=== PATIENT | female | born 1950 | race American Indian/Alaskan Native ===

== ENCOUNTER 2017-03-31 08:18 | Outpatient (CLI) | payer MEDICARE, OTHER ==
--- NOTE | 2017-03-31 13:00 | PET Report ---
PET SB TO MT SUBSEQUENT: HISTORY: Breast cancer. TECHNIQUE: 11.1 millicuries F-18 FDG was administered intravenously. Noncontrast CT images and PET images were obtained from the skull base to the proximal thighs. Fused images were reviewed on a workstation. The patient's blood glucose level measured 159. COMPARISON: None. FINDINGS: BRAIN: physiologic FDG uptake in the imaged brain. NECK: physiologic FDG uptake. CHEST WALL: Right mastectomy changes and right axillary lymph node dissection changes are noted. No recurrent chest wall mass is appreciated. MEDIASTINUM: physiologic FDG uptake. LUNGS: physiologic FDG uptake. PLEURA/PERICARDIUM: physiologic FDG uptake. THORACIC LYMPH NODES: physiologic FDG uptake. HEPATOBILIARY: physiologic FDG uptake. Mean liver SUV measures 4.3. PANCREAS: physiologic FDG uptake. SPLEEN: physiologic FDG uptake. ADRENAL GLANDS: physiologic FDG uptake. KIDNEYS/RENAL COLLECTING SYSTEMS: physiologic FDG uptake. BOWEL/MESENTERY: physiologic FDG uptake. PELVIC VISCERA: physiologic FDG uptake. ABDOMINAL/PELVIC LYMPH NODES: physiologic FDG uptake. MUSCULOSKELETAL: physiologic FDG uptake. IMPRESSION: Negative PET/CT. No evidence for disease recurrence or metastasis.
== END 2017-03-31 08:19 | disposition home or self-care (01) ==
LOC: PET 08:18
PROVIDERS: ATTEND Internal Medicine Hematology & Oncology
DX: C50.411 Malignant neoplasm of upper-outer quadrant of right female breast (principal); E11.9 Type 2 diabetes mellitus without complications; D64.9 Anemia, unspecified; I10 Essential (primary) hypertension; Z90.11 Acquired absence of right breast and nipple; Z79.899 Other long term (current) drug therapy
CPT/HCPCS: 78815; 82962; A9552

== ENCOUNTER 2019-06-08 10:20 | Outpatient (CLI) | payer MEDICARE ==
--- NOTE | 2019-06-08 11:56 | Mammography Report ---
BONE DEXA CLINICAL: Postmenopausal and history of right breast cancer. COMPARISON: 04/28/2016 TECHNIQUE: 2 site bone DEXA performed on an Hologic scanner. FINDINGS: The average BMD of the lumbar spine L1-L4 is 0.994g/cm squared with a T score of -0.5 and a Z score o f +0.9. This compares to 0.964g/cm squared on the last exam and represents a +3.0 % change from the [ previous baseline]. The average BMD of the left hip is 1.077 g/cm squared with a T score of +1.1and a Z score of +1.4. Th is compares to 1.097 g/cm squared on the last exam and represents a -1.9 % change from the [previous baseline]. IMPRESSION: 1. WHO classification: Normal with average fracture risk based on spine measurements. 2. WHO classification Normal with average fracture risk based on left hip measurements. 3. A modest improvement in spine BMD and a modest decline in left hip BMD compared to the baseline ex am. RECOMMENDATION: Clinical correlation and routine screening. Definitions: BMD equal bone mineral density T score = BMD related to peak bone mass of young adult (Deanne expressed an standard deviation) Z score = age-matched BMD expressed in SD World health organization (WHO) diagnostic criteria Normal T score greater than equal to 1 standard deviation Osteopenia T score between -1 and -2.4 standard deviation Osteoporosis T score -2.5 standard deviation or below. Note: BMD is not the only risk factor for fracture; also consider factors such as the patient's age, risk of falling, previous osteoporotic fracture, family history of osteoporotic fractures, current sm oker and low body weight. Z scores are not calculated if greater than 80 years of age. Signer Name: Anirudh Vickers MD Signed: 06/08/2019 11:51 AM Workstation Name: [id number]
== END 2019-06-08 10:21 | disposition home or self-care (01) ==
LOC: MAMMO 10:20
PROVIDERS: ATTEND Internal Medicine Hematology & Oncology
DX: L65.8 Other specified nonscarring hair loss (principal); D64.9 Anemia, unspecified; C50.411 Malignant neoplasm of upper-outer quadrant of right female breast; E11.9 Type 2 diabetes mellitus without complications; I10 Essential (primary) hypertension; E66.9 Obesity, unspecified; E66.3 Overweight; N95.9 Unspecified menopausal and perimenopausal disorder; Z13.9 Encounter for screening, unspecified; Z85.3 Personal history of malignant neoplasm of breast; Z71.89 Other specified counseling; Z79.899 Other long term (current) drug therapy
CPT/HCPCS: 77080